=== PATIENT | female | born 1970 | race Caucasian/White ===

== ENCOUNTER 2017-10-08 18:20 | Emergency (ER) | payer OTHER, MEDICARE, SELFPAY ==
--- NOTE | 2017-10-08 18:34 | EKG12_ITS ---
Test Reason : CP Blood Pressure : / mmHG Vent. Rate : 093 BPM Atrial Rate : 093 BPM P-R Int : 132 ms QRS Dur : 082 ms QT Int : 358 ms P-R-T Axes : 072 024 067 degrees QTc Int : 445 ms Normal sinus rhythm Low voltage QRS (limb leads) Septal PR, age undetermined Confirmed by LEONID LOWE, NITA ([id number]), legal editor DAT BAKER ([id number]) on 10/12/2017 3:08:03 PM Referred By: LILO Confirmed By:NITA JAQUEZ MD
--- NOTE | 2017-10-08 19:00 | RAD_ITS ---
STUDY: X-RAY CHEST REASON FOR EXAM: Female, 47 years old. Palpitations. TECHNIQUE: 2 views COMPARISON: Prior chest radiograph of June 01, 2016 FINDINGS: The lungs are clear and expanded. There is no demonstrated pleural abnormality. Normal size heart. Normal mediastinum and giselle. Normal visualized pulmonary arteries. Normal visualized aortic arch and descending thoracic aorta. Normal visualized thoracic spine. Normal visualized ribs, clavicles, and shoulders. There is no demonstrated abnormality of the visualized soft tissue structures of the upper abdomen. RAD/Chest PA and Lateral IMPRESSION: Normal x-ray examination of the chest. Electronically Signed: Stephanie Erwin MD at 20:03 EDT , Service support ,
[2017-10-09 01:35] LABS: Anion Gap 6 (5-15); BUN 11 mg/dL (7-18); BUN/Creat Ratio 21.6 RATIO (10-20); Calcium,Total 8.7 mg/dL (8.5-10.1); Chloride 104 mmol/L (98-107); Creatinine, Serum 0.51 mg/dL (0.55-1.02); EST Glomerular Filtration Rate 138 mL/min (>60); Est Glom Filt Rate - Afr Amer 167 mL/min (>60); Glucose 93 mg/dL (74-106); Potassium 3.8 mmol/L (3.5-5.1); Sodium Level 138 mmol/L (136-145)
[2017-10-09 01:40] LABS: Hematocrit 46.4 % (37-47); Hemoglobin 15.6 g/dl (12.0-15.0); Mean Corp Hgb Conc 33.6 g/gl (32-36); Mean Corpuscular Hgb 32.5 pg (27.0-32.0); Mean Corpuscular Volume 96.7 fL (81-99); Mean Platelet Vol. 10.9 fl (6.2-12.0); Neutrophil % 67.9 % (47-70); POSITIVE COUNT NO; POSITIVE DIFFERENTIAL NO; POSITIVE MORPHOLOGY NO; Platelet Count 214 K/mm3 (150-450); RBC Distribution Width CV 13.5 % (11.6-14.6); RBC Distribution Width SD 46.8 fl (35.1-43.9); White Blood Count 12.7 K/mm3 (4.4-11.0)
[2017-10-09 01:41] LABS: Absolute Lymphocyte Count 2.87 X10^3/ul (0.83-4.51); Absolute Neutrophil Count 8.6 X10^3/uL (2.0-7.7); Basophil# 0.02 X10^3/uL; Basophil% 0.2 % (0-1); Eosinophil# 0.21 X10^3/uL; Eosinophils% 1.7 % (0-5); Lymphocyte # 2.87 X10^3/ul (4.0); Lymphocyte % 22.6 % (19-41); Monocyte% 7.1 % (0-10); Neutrophil # 8.64 X10^3/uL (2.7-7.7)
--- NOTE | 2017-10-09 01:58 | ED.DCSUM_ITS ---
- ER Visit Summary Date of Service: 10/09/17 Chief Complaint: Chest pain History of Present Illness: The patient is a 47 F presents with right-sided palpitations since 11 AM this morning. His last 5 minutes. Would come and go. Dyspnea. No cough. History of ALS wheelchair-bound. No recent leg swelling or cramps. No lightheaded symptoms. No further complaints. Physical Examination: General: Alert and oriented ?3, no acute distress HEENT: Normocephalic, atraumatic. Moist mucosa membranes Neck: supple, nontender. Cardiovascular: Regular rate and rhythm, no murmurs Respiratory: Normal breath sounds, symmetric, no distress Abdomen: Soft, nontender, nondistended Extremities: Nontender, no edema, pulses intact ?4 Neuro: no focal neurological deficits. Test Results: EKG: Sinus rate of 93, no ST or T-wave changes. Chest x-ray negative. Hemoglobin 15.6. Potassium 3.8. Troponin negative. Emergency Department Course and Treatment: Patient presents with more palpitation symptoms. Cardiac workup was negative. CATALINO score 0. Heart scores are widened. Normal sinus on the monitor. Discussed with patient likely see her PCP for outpatient follow-up and possible Holter monitors symptoms persist. She denies any significant caffeine intake. Patient will return if any worsening symptoms. Treatment Plan: [] Disposition: Discharge Impression: 1. Atypical chest pain 2. Palpitations This note was generated with [employer] dictation software. It may contain incorrect words, spelling, and punctuation that were not noted in review of the chart prior to signing ED Disposition - Plan for ED Patient: Disposition: Home or Assisted Living Diagnosis: Atypical chest pain, Palpitations Referrals: Arnaldo Goldberg MD [Primary Care Provider] -
== END 2017-10-08 20:36 | disposition home or self-care (01) ==
PROVIDERS: Emergency Provider Emergency Medicine; Family Provider Family Medicine; PCP Family Medicine
DX: R07.89 Other chest pain (principal); R00.2 Palpitations; Z72.0 Tobacco use
CPT/HCPCS: 36415; 71046; 80048; 84484; 85025; 93005; 99283; A4216

== ENCOUNTER 2018-01-31 17:22 | Emergency (ER) | payer OTHER, MEDICARE, SELFPAY ==
[2018-01-31 17:23] VITALS: BP 127/78; PULSE 105; RESP 16; TEMP 36.9; O2SAT 95; BMI 31.6
--- NOTE | 2018-01-31 17:59 | ED.DCSUM_ITS ---
- ER Visit Summary Date of Service: 01/31/18 Chief Complaint: Rib pain History of Present Illness: The patient is a 47 F with a history of ALS. Family was helping her from her wheelchair into bed on Wednesday night when she had sudden pain in the left ribs from being lifted. She has not been taking anything for pain. Pain is worse with movement. Physical Examination: Vital signs unremarkable. Patient sitting in her motorized wheelchair. She appears uncomfortable but in no acute distress. Heart is regular rate and rhythm. Lung sounds are clear. She has reproduced with tenderness in the left lateral ribs. There is no crepitus. I do not see any visible bruising. Test Results: Portable chest x-ray is unremarkable. Emergency Department Course and Treatment: Patient was given a dose of oxycodone. Test results were discussed with her. I did advise her that if she has a nondisplaced rib fracture it is very difficult to picking supervisor on x-ray. She voices understanding. She was encouraged to take deep breaths and is given a prescription for oxycodone. Treatment Plan: [] Disposition: Discharge Impression: Left rib contusion This note was generated with [employer] dictation software. It may contain incorrect words, spelling, and punctuation that were not noted in review of the chart prior to signing ED Disposition - Plan for ED Patient: Disposition: Home or Assisted Living Chief Complaint: Chest Other Instructions: ED Contusion Vs Minor Fx Rib Prescriptions: Oxycodone HCl/Acetaminophen [Percocet 5/325] 1 tablet PO Q6H PRN PRN 3 Days #12 tablet PRN Reason: Pain Referrals: Na Mark DO [STAFF PHYSICIAN] - As Needed
[2018-01-31] MEDS: oxyCODONE 5 MG Tablet PO (18:11)
--- NOTE | 2018-01-31 18:54 | ED.DEP ---
ED Disposition - Plan for ED Patient: Disposition: Home or Assisted Living Chief Complaint: Chest Other Instructions: ED Contusion Vs Minor Fx Rib Prescriptions: Oxycodone HCl/Acetaminophen [Percocet 5/325] 1 tablet PO Q6H PRN PRN 3 Days #12 tablet PRN Reason: Pain Referrals: Na Mark DO [STAFF PHYSICIAN] - As Needed
== END 2018-01-31 19:05 | disposition home or self-care (01) ==
PROVIDERS: Emergency Provider Emergency Medicine
DX: S20.212A Contusion of left front wall of thorax, initial encounter (principal); X58.XXXA Exposure to other specified factors, initial encounter; Y93.9 Activity, unspecified; Y92.9 Unspecified place or not applicable; G12.21 Amyotrophic lateral sclerosis; J45.909 Unspecified asthma, uncomplicated; Z87.891 Personal history of nicotine dependence
CPT/HCPCS: 71045; 99282